=== PATIENT | female | born 2000 | race Caucasian/White ===

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

== ENCOUNTER 2024-02-05 20:41 | Emergency (ER) | payer OTHER ==
[~2024-02-05] VITALS: Ht 165.1 cm; Wt 113.6 kg
[2024-02-05] MEDS: KETOROLAC 60MG 2ML VIAL IM ONE (23:51)
[2024-02-06 00:05] VITALS: BP 132/76; TEMP 98.2; O2SAT 100
== END 2024-02-06 00:07 | disposition home or self-care (01) ==
LOC: M ED 20:41
DX: S93.402A Sprain of unspecified ligament of left ankle, initial encounter (principal); X50.0XXA Overexertion from strenuous movement or load, initial encounter; Y92.009 Unspecified place in unspecified non-institutional (private) residence as the place of occurrence of the external cause; Y93.9 Activity, unspecified; Y99.9 Unspecified external cause status
CPT/HCPCS: 73610; 96372; 99284; J1885

== ENCOUNTER 2024-10-28 21:51 | Emergency (ER) | payer OTHER ==
[~2024-10-28] VITALS: Ht 165.1 cm; Wt 136.7 kg
[2024-10-29] MEDS: KETOROLAC 60 MG/2 ML VIAL IM ONE (01:24)
[2024-10-29] MEDS: AUGMENTIN 875 MG TAB PO ONE (01:24)
[2024-10-29] MEDS: BENZOCAINE 20% GEL 9 GM TUBE TOP ONE (01:24)
[2024-10-29] MEDS ORDERED: AMOX875T2 PO (02:03)
[2024-10-29] MEDS ORDERED: KETO-204 PO (02:03)
[2024-10-29 02:16] VITALS: BP 128/83; TEMP 97; O2SAT 100
== END 2024-10-29 02:20 | disposition home or self-care (01) ==
LOC: M ED 21:51
DX: K08.89 Other specified disorders of teeth and supporting structures (principal)
CPT/HCPCS: 96372; 99283; J1885

== ENCOUNTER → 2025-03-13 | Outpatient (REF) | payer OTHER ==
[~2025-03-13] MED LIST: AMOX875T2 PO; KETO-204 PO
[2025-03-13 17:31] LABS: BASO # 0.0 10^3/uL (0.0-0.2); BASO % 0.4 % (0.0-1.0); EOS # 0.1 10^3/uL (0.0-0.5); EOS % 1.5 % (0.0-3.0); LYMPH # 3.5 10^3/uL (1.5-5.0); LYMPH % 45.5 % (24.0-44.0); MONO # 0.6 10^3/uL (0.0-0.8); MONO % 7.3 % (2.0-8.0); NEUTROPHILS # 3.5 10^3/uL (1.5-8.5); NEUTROPHILS % 44.9 % (36.0-66.0); PLATELET COUNT, AUTOMATED 366 10^3/uL (150-450)
[2025-03-13 17:56] LABS: ALT/SGPT 30 U/L (7.0-40); AST/SGOT 20 U/L (<34); CALCIUM LEVEL 9.6 MG/DL (8.5-10.1); CARBON DIOXIDE LEVEL 28 MMOL/L (20-31); CHLORIDE LEVEL 102 MMOL/L (98-107); CHOLESTEROL LEVEL 171 MG/DL (<200); CHOLESTEROL RISK RATIO 2.92 (<5); CREATININE FOR GFR 0.82 MG/DL (0.55-1.30); GLOMERULAR FILTRATION RATE > 90.0 (>60); LDL CHOLESTEROL 92.5 MG/DL (<100); NON-HDL-C 112.5 MG/DL; POTASSIUM SERUM 4.6 MMOL/L (3.5-5.1); SODIUM LEVEL 139 MMOL/L (136-145); TRIGLYCERIDES LEVEL 100 MG/DL (<150)
[2025-03-13 17:58] LABS: TOTAL 25(OH) VITAMIN D 25.6 NG/ML (20.0-100.0)
[2025-03-13 18:29] LABS: ESTIMATED AVERAGE GLUCOSE 100.0 MG/DL (60-110)
[2025-03-14 01:02] LABS: HIV 1&2 SCREEN NEGATIVE (NEGATIVE)
[2025-03-14 01:10] LABS: HEPATITIS C VIRUS ABY INDEX 0.04 INDEX (<0.8)
== END ==
LOC: M LAB REF 16:46
PROVIDERS: ATTEND Nurse Practitioner Family
DX: E66.813 Obesity, class 3 (principal); Z11.9 Encounter for screening for infectious and parasitic diseases, unspecified; R53.83 Other fatigue